=== PATIENT | male | born 1985 | race Caucasian/White ===

== ENCOUNTER 2016-08-27 10:31 | Emergency (ER) | payer OTHER ==
[~2016-08-27] VITALS: Ht 170.2 cm; Wt 79.4 kg
[2016-08-27 10:35] VITALS: BP 142/93
== END 2016-08-27 11:09 | disposition home or self-care (01) ==
LOC: ED 10:31
DX: S80.862A Insect bite (nonvenomous), left lower leg, initial encounter (principal); L08.9 Local infection of the skin and subcutaneous tissue, unspecified; W57.XXXA Bitten or stung by nonvenomous insect and other nonvenomous arthropods, initial encounter; Y93.9 Activity, unspecified; Y92.89 Other specified places as the place of occurrence of the external cause; Y99.8 Other external cause status